=== PATIENT | female | born 1985 | race Caucasian/White ===

== ENCOUNTER → 2016-09-05 | Outpatient (CLI) | payer SELFPAY ==
--- NOTE | 2016-09-05 10:21 | CT ---
CORONARY CALCIUM SCORE CLINICAL INDICATION: Screening. COMPARISON: None PROCEDURE: Gated images of the coronary arteries. Coronary artery calcium scoring was performed. FINDINGS: Coronary calcium scoring - 3 LM: 0 LAD: 0 LCX: 0 RCA: 3 IMPRESSION: 1. Calcium score of 3. This places the patient at approximately the 75th-90th percentile for females of equivalent age. Minimal identifiable plaque. Less than 10% risk of coronary artery disease. Reported By:
== END ==
LOC: RAD 08:38
PROVIDERS: ATTEND Nurse Practitioner Family
DX: Z13.6 Encounter for screening for cardiovascular disorders (principal)